=== PATIENT | male | born 1990 | race Caucasian/White ===

== ENCOUNTER → 2017-06-29 | Outpatient (CLI) | payer OTHER ==
--- NOTE | 2017-06-30 03:12 | SP ---
DATE OF PROCEDURE: 06/29/2017 ELECTROENCEPHALOGRAM HISTORY: This is a 27-year-old male with history of mental retardation, speech delay, dysarthria, i s being evaluated for possible seizure. CURRENT MEDICATIONS: None. PROCEDURE: Utilizing a 16-channel EEG machine, cap scalp electrodes were applied in accordance with International 10-20 system. [id number] and [id number] montages were displayed. Electrical i mpedances were measured and reported. DESCRIPTION: During the resting state, posterior dominant rhythm of about 7 to 8 Hz was seen bihemi spherically. Photic stimulation had a good response. Hyperventilation did not attenuate the rhythm . There was no focal lateralizing or epileptiform discharge identified. INTERPRETATION: This is a mildly abnormal EEG due to presence of generalized bihemispheric backgrou nd slowing without any epileptiform activity, consistent with mild encephalopathy. Please correlate these findings with patient's clinical picture. Dictated By: LISANDRA GONZALEZ/ANGELITO Conf#: [id number] DID#: [id number]
== END | disposition home or self-care (01) ==
LOC: EEG 11:22
PROVIDERS: ATTEND Psychiatry & Neurology Neurology
DX: R47.1 Dysarthria and anarthria (principal)
CPT/HCPCS: 95819

== ENCOUNTER 2018-12-14 14:27 | Day surgery (SDC) | payer OTHER ==
[2018-12-14] VITALS (18 sets, daily range): BP systolic 123–159; BP diastolic 70–88; PULSE 102–122; RESP 12–70; Ht 165.1 cm; Wt 102.0 kg
[~2018-12-14] VITALS: Ht 165.1 cm; Wt 102.0 kg
[2018-12-14] MEDS ORDERED: BUPIVACAINE 0.5% (SDV) 30 ML INJ ONE (16:49)
[2018-12-14] MEDS ORDERED: HYDROmorphONE 1 MG/5 ML IV SYRINGE IV PRN ×3 (17:00)
[2018-12-14] MEDS ORDERED: IPRATROPIUM (NEB) 0.5 MG/2.5 ML AMP HHN PRN (17:00)
[2018-12-14] MEDS ORDERED: OXYCODONE/ACETAMINOPHEN (5/325) TAB PO PRN ×2 (17:00)
[2018-12-14] MEDS ORDERED: MIDAZOLAM 1 MG/ML 2 ML INJ IV PRN (17:00)
[2018-12-14] MEDS ORDERED: FENTAnyl 50 MCG/ML VIAL IV PRN ×3 (17:00)
[2018-12-14] MEDS ORDERED: LABETALOL HCL 20MG INJ IV PRN (17:00)
[2018-12-14] MEDS ORDERED: TRIMETHOBENZAMIDE 100 MG/ML VIAL IM PRN (17:00)
[2018-12-14] MEDS ORDERED: DIPHENHYDRAMINE 50 MG INJ IV PRN (17:00)
[2018-12-14] MEDS ORDERED: ALBUTEROL 0.083% (NEB) 2.5 MG/3 ML AMP HHN PRN (17:00)
[2018-12-14] MEDS ORDERED: ONDANSETRON 4 MG INJ IV PRN (17:00)
[2018-12-14] MEDS ORDERED: EPHEDrine SULFATE 50 MG/5 ML SYG IV PRN (17:00)
[2018-12-14] MEDS ORDERED: MEPERIDINE 25 MG INJ IV PRN (17:00)
[2018-12-14] MEDS ORDERED: hydrALAzine 20 MG INJ IV PRN (17:00)
--- NOTE | 2018-12-14 17:03 | PREAC ---
Date/Time of Note Date/Time of Note DATE: 12/14/18 TIME: 17:00 Anesthesia Eval and Record Evaluation Time Pre-Procedure Interview DATE: 12/14/18 TIME: 17:00 Age 28 Sex male NPO: 8 hrs Preoperative diagnosis RIGHT THUMB METACARPAL FRACTURE, SUBLUXATION OF THE MCP JOINT Planned procedure PINNING VS ORIF RIGHT THUMB METACARPAL BASE FRACTURE Past Medical History Past Medical History: Includes (MENTAL RETARDATION) Surgery & Anesthesia Issues No known issue Meds Anticoagulation: No Beta Quentin within 24 hr: No Reason Beta Quentin not given: Pt. not on B-Quentin Meds reviewed: Yes Allergies Coded Allergies: No Known Allergy (Unverified , 12/14/18) Allergies Reviewed: Yes Labs/Studies Labs Reviewed: Reviewed by anesthesiologist test: N/A Pre-procedure Exam Last vitals Vital Signs Date Temp Pulse Resp B/P (MAP) Pulse Ox O2 O2 Flow FiO2 Time Delivery Rate 12/14/18 98.4 104 20 130/80 96 15:30 (97) Airway: Adequate mouth opening, Adequate thyromental dist Mallampati: Mallampati II Teeth: Normal Lung: Normal Heart: Normal ASA Physical Status ASA physical status: 2 Emergency: None Planned Anesthetic General/MAC: ETT Planned Pain Management Parenteral pain med Pre-operative Attestations Prior to commencing anesthesia and surgery, the patient was re-evaluated, there was verification of: *The patient's identity *The results of appropriate recent lab work and preoperative vital signs *The above evaluation not changing prior to induction *Anesthetic plan, risk benefits, alternative and complications discussed with patient/family; questions answered; patient/family understands, accepts and wishes to proceed. Keith Sifuentes M.D. Dec 14, 2018 17:03
--- NOTE | 2018-12-14 17:11 | HPN ---
Date/Time of Note Date/Time of Note DATE: 12/14/18 TIME: 17:11 Interval H&P Admission Note Pt. seen H&P reviewed: No system changes ALEX MENDOZA Dec 14, 2018 17:11
[2018-12-14] MEDS ORDERED: NEOSTIGMINE 3 MG/3 ML SYRINGE ONE (17:23)
[2018-12-14] MEDS ORDERED: PROPOFOL 20 ML ONE (17:23)
[2018-12-14] MEDS ORDERED: CEFAZOLIN 1 GM INJ ONE (17:23)
[2018-12-14] MEDS ORDERED: GLYCOPYRROLATE 0.4 MG INJ ONE (17:23)
[2018-12-14] MEDS ORDERED: ROCURONIUM 50 MG INJ ONE (17:23)
[2018-12-14] MEDS ORDERED: DEXAMETHASONE 4 MG/ML 5 ML INJ ONE (17:24)
[2018-12-14] MEDS ORDERED: FENTAnyl 50 MCG/ML VIAL ONE ×2 (17:24→17:46)
[2018-12-14] MEDS ORDERED: ONDANSETRON 4 MG INJ ONE (17:24)
[2018-12-14] MEDS ORDERED: MIDAZOLAM 1 MG/ML 2 ML INJ ONE (17:24)
[2018-12-14] MEDS ORDERED: POLYMYXIN/BACITRACIN 1L IRRIG IRR ONE (18:05)
[2018-12-14] MEDS ORDERED: SUGAMMADEX SODIUM 200 MG/2 ML VIAL IV ONE (18:13)
[2018-12-14] MEDS ORDERED: KETOROLAC 30 MG INJ ONE (18:13)
--- NOTE | 2018-12-14 18:18 | OPPN ---
Date/Time of Note Date/Time of Note DATE: 12/14/18 TIME: 18:17 Operative Report Preoperative Diagnosis Right thumb MC base fracture, intra-articular Right thumb CMC joint dislocation Postoperative Diagnosis Right thumb MC base fracture, intra-articular Right thumb CMC joint dislocation Operation/Procedure Performed Right thumb MC base fracture, intra-articular, ORIF Right thumb CMC joint dislocation, open reduction and pinning Surgeon see signature line medical claims assistant none Anesthesia: general Estimated blood loss: 0 - 10 ml's Transfusion Required none Specimen none Grafts/Implants none Complications none ALEX MENDOZA Dec 14, 2018 18:18
--- NOTE | 2018-12-14 18:28 | PAC ---
Date/Time of Note Date/Time of Note DATE: 12/14/18 TIME: 18:28 Post-Anesthesia Notes Post-Anesthesia Note Last documented vital signs Vital Signs Date Temp Pulse Resp B/P (MAP) Pulse Ox O2 O2 Flow FiO2 Time Delivery Rate 12/14/18 98.4 104 20 130/80 96 15:30 (97) Activity: WNL Respiratory function: WNL Cardiovascular function: WNL Mental status: Baseline Pain reasonably controlled: Yes Hydration appropriate: Yes Nausea/Vomiting absent: Yes Keith Sifuentes M.D. Dec 14, 2018 18:28
--- NOTE | 2018-12-14 23:44 | OPR ---
DATE OF OPERATION: 12/14/2018 SURGEON: Dhruv Vance MD ANESTHESIA: General PREOPERATIVE DIAGNOSES: 1. Right thumb metacarpal base intraarticular fracture at the carpometacarpal joint. 2. Right thumb carpometacarpal joint subluxation/dislocation. POSTOPERATIVE DIAGNOSES: 1. Right thumb metacarpal base intraarticular fracture at the carpometacarpal joint. 2. Right thumb carpometacarpal joint subluxation/dislocation. PROCEDURES: 1. Open reduction internal fixation right thumb metacarpal base fracture, intraarticular at CMC joint, displaced. 2. Open reduction and pinning of right thumb carpometacarpal joint subluxation/dislocation. OPERATIVE FINDINGS: Displaced, irreducible right thumb metacarpal base intraarticular fracture of the CMC joint. INDICATION FOR PROCEDURE: A 28-year-old male with injury to the right hand who was seen in clinic and diagnosed with a fracture at the right thumb CMC joint with subluxation/dislocation. We discussed the options with the patient and mom, elected to proceed with surgical intervention understanding risks and benefits. DESCRIPTION OF PROCEDURE: The patient was seen in the preoperative area and all further questions were answered. Again, he gave informed consent understanding risks and benefits. He was taken to the operative suite and placed in the supine position. The patient was placed under general anesthesia and Ancef 2 grams IV given. Tourniquet placed on the right upper extremity and right upper extremity was prepped with ChloraPrep stick and draped in the usual sterile fashion. Esmarch bandage was used to exsanguinate the extremity and tourniquet inflated to 250 mmHg. Attempt was made at closed reduction of the fracture dislocation and I was unable to do so with closed means. The fracture was subacute and required open reduction. A decision was made to proceed with open reduction internal fixation. A longitudinal incision over the dorsal aspect of the right thumb metacarpal base was utilized with sharp dissection carried down through skin and subcutaneous tissue. The fracture was identified after longitudinal capsulotomy and the dorsal capsule was elevated off of the fracture site. The fracture was reduced with a [place] elevator as well as longitudinal traction, abduction, extension and pronation. I was able to get the fracture into a more anatomic position and a 0.045 K-wire was driven from the base of the right thumb metacarpal into the index finger metacarpal. In the process of reducing the fracture fragments, I was also able to reduce the carpometacarpal joint dislocation after releasing some of the joint capsule. With the joint reduced and the fracture in a more anatomic position, an additional 0.045 K-wire was driven from the thumb metacarpal into the index finger metacarpal. X-ray imaging showed appropriate hardware placement and bony alignment. Wound was copiously irrigated and pins cut short. Wound closed with 5-0 nylon. Xeroform was placed on wounds followed by sterile gauze, Webril, and short arm thumb spica splint. Tourniquet deflated after 21 minutes. The patient was awakened from anesthesia. He was taken to postoperative suite in stable condition, tolerated procedure well without complication. SPECIMENS: None. ESTIMATED BLOOD LOSS: 5 mL. COUNTS: Sponge, instrument, needle counts correct. TOURNIQUET TIME: 21 minutes. CONDITION ON DISCHARGE: Stable. The patient was given a nonrefillable 5-day prescription for pain medication after surgery today. Dictated By: DHRUV STAHL/ANGELITO Conf#: [id number] DID#: [id number] NESTOR
== END 2018-12-14 19:45 | disposition home or self-care (01) ==
LOC: SDS 14:27
PROVIDERS: ATTEND Orthopaedic Surgery Hand Surgery
DX: S62.201A Unspecified fracture of first metacarpal bone, right hand, initial encounter for closed fracture (principal); X58.XXXA Exposure to other specified factors, initial encounter; Y93.89 Activity, other specified; Y92.89 Other specified places as the place of occurrence of the external cause; Y99.8 Other external cause status
CPT/HCPCS: 26746; 73130; J0690; J1100; J1170; J2250; J2405; J3010; Z7512; Z7610; J1885; J2710